=== PATIENT | male | born 1990 | race Caucasian/White ===

== ENCOUNTER 2024-03-17 20:52 | Emergency (ER) | payer OTHER, SELFPAY ==
--- NOTE | ~2024-03-17 | XR_ITS ---
EXAMINATION: XR hand RT min 3V DATE: 03/17/2024 21:30 INDICATION: Right hand injury TECHNIQUE: Posteroanterior, oblique and lateral views of the right hand were obtained. COMPARISON: None. FINDINGS: Alignment is normal. No fracture. Joint spaces are normal. Soft tissues are unremarkable. IMPRESSION: 1. Negative right hand radiographs. Reviewed, dictated and finalized at location A.
[2024-03-17 21:22] VITALS: BP 219/92; PULSE 94; RESP 16; TEMP 36.8; O2SAT 99
[2024-03-17 22:42] VITALS: BP 196/96; PULSE 67; RESP 15; O2SAT 99
--- NOTE | 2024-03-17 23:25 | ED.UPPEXIN ---
HPI - Extremity Injury (Upper) General Chief Complaint: Extremity Injury, Upper Stated Complaint: CRUSH INJURY TO RIGHT HAND Time Seen by Provider: 03/17/24 22:33 Source: patient Mode of arrival: ambulatory Limitations: no limitations History of Present Illness HPI narrative: This is a 33-year-old male that presents to the emergency department for right hand injury. Reports he accidentally got his hand caught between a log and his truck bed. Reports pain about the 4th and 5th metacarpals. Denies decreased range of motion or numbness. Related Data Allergies Allergy/AdvReac Type Severity Reaction Status Date / Time No Known Allergies Allergy Verified 03/17/24 23:26 Review of Systems Review of Systems: CONSTITUTIONAL: Denies fever MUSCULOSKELETAL: Reports joint pain, and myalgia. NEUROLOGIC: Denies numbness, or weakness. All systems reviewed & are unremarkable except as noted in HPI and below PMFSH Past Medical History Medical History (Updated 03/17/24 @ 23:31 by Spring Crockett PA-C) History of hypertension Social History Social History (Updated 03/17/24 @ 23:31 by Spring Crockett PA-C) Substance use: never Exam Narrative: GENERAL: Well-appearing, well-nourished, and in no acute distress. HEAD: Normocephalic, atraumatic. EYES: EOMI. EXTREMITIES: Normal range of motion. No edema or obvious deformity. Normal radial pulse. Normal sensation. Normal capillary refill SKIN: Warm, dry, no rash. NEURO: No focal deficits. Alert and oriented x3. PSYCH: Normal mood and affect Course Course Emergency Course: Patient updated on his workup and agrees with plan of care Vital Signs Vital signs: Vital Signs Temperature 98.3 F 03/17/24 21:22 Pulse Rate 94 03/17/24 21:22 Respiratory Rate 16 03/17/24 21:22 Blood Pressure 219/92 H 03/17/24 21:22 Pulse Oximetry 99 03/17/24 21:22 Oxygen Delivery Room Air 03/17/24 21:22 Temperature 98.3 F 03/17/24 21:22 Pulse Rate 67 03/17/24 22:42 Respiratory Rate 15 03/17/24 22:42 Blood Pressure 196/96 H 03/17/24 22:42 Pulse Oximetry 99 03/17/24 22:42 Oxygen Delivery Room Air 03/17/24 21:22 MDM - Extremity Injury (Upper) MDM Narrative Medical decision making narrative: Patient presents to the emergency department after a right hand injury sustained just prior to arrival. Patient is neurovascularly intact. Right hand x-rays without acute osseous abnormalities. Patient updated on his workup and agrees with plan of care. Instructed to rest, ice and take [id number] pain medication as needed. He is to follow up with primary provider. He was given warnings to return to the ER. Patient incidentally hypertensive. He does not have any symptoms with this. Reports he did not take his blood pressure medication today. Instructed on the importance of taking his medications as prescribed. Will follow up with his primary provider for this as well Differential Diagnosis Differential diagnosis: Likely fracture of hand and other (Contusion) Imaging Data Radiologist's impression: ITS Impressions Hand X-Ray 03/17/24 21:38 IMPRESSION: 1. Negative right hand radiographs. Critical Care Time Critical Care Time Critical Care Time: No Discharge Plan Discharge Clinical Impression: Injury of hand, right Qualifiers: Encounter type: initial encounter Qualified Code(s): S69.91XA - Unspecified injury of right wrist, hand and finger(s), initial encounter Patient Disposition: Home, Self-Care Condition: Stable Instructions: Contusion in Adults (ED), Crush Injury (ED) Additional Instructions: Return to the ER if you experience fever, redness and swelling of your arm, weakness, numbness, your arm feels cold, or any other symptoms that are concerning to you Rest, use ice, take anti-inflammatories (Aleve, Ibuprofen, Naproxen, etc) or Tylenol as needed for pain. Take your blood pressure medication as prescribed
[2024-03-17] MEDS: KETOROLAC 30 MG/ML VIAL (*BKC) IM (23:26)
[2024-03-17 23:45] VITALS: BP 184/92; PULSE 77; RESP 16; O2SAT 98
== END 2024-03-17 23:46 | disposition home or self-care (01) ==
PROVIDERS: Emergency Provider Physician Assistant
DX: S69.91XA Unspecified injury of right wrist, hand and finger(s), initial encounter (principal); I10 Essential (primary) hypertension; W23.0XXA Caught, crushed, jammed, or pinched between moving objects, initial encounter
CPT/HCPCS: 73130; 96372; 99283; J1885

== ENCOUNTER 2024-04-09 20:23 | Emergency (ER) | payer OTHER, SELFPAY ==
[2024-04-10 00:10] VITALS: BP 199/102; PULSE 80; RESP 19; TEMP 36.9; O2SAT 98
[2024-04-10 00:12] VITALS: O2SAT 98
== END 2024-04-10 00:51 | disposition left against medical advice (07) ==
DX: R21 Rash and other nonspecific skin eruption (principal)
CPT/HCPCS: 99199

== ENCOUNTER 2024-07-31 21:08 | Emergency (ER) | payer OTHER, SELFPAY ==
--- NOTE | ~2024-07-31 | XR_ITS ---
EXAM: XR knee RT 3V DATE: 07/31/2024 21:37 HISTORY: pain/ RIGHT KNEE PAIN FOR 2 MONTHS. . COMPARISON: None available. FINDINGS: Normal mineralization. No fracture or dislocation. No lytic or blastic lesion. Very mild t ricompartmental osteoarthritic change. No erosion or periosteal change. Soft tissues within normal li mits. Small volume joint effusion. IMPRESSION: No acute osseous finding in the right knee. Reviewed, dictated and finalized at location K.
[2024-07-31 21:17] VITALS: BP 208/102; PULSE 90; RESP 20; TEMP 36.7; O2SAT 100
[2024-07-31 21:50] VITALS: BP 202/119; PULSE 80; RESP 16; O2SAT 98
--- NOTE | 2024-07-31 21:50 | PC.NURSE ---
pt states they have been diagnosed with HTN and is prescribed medication but did not take it at all today. pt usually takes it in the morning and was lazy and frequently forgets to take medication.
[2024-07-31] MEDS: LOSARTAN POTASSIUM 100 MG TABLET PO (22:52)
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
== END 2024-08-01 00:48 | disposition left against medical advice (07) ==
LOC: ANHED 08-01 01:39
PROVIDERS: Emergency Provider Physician Assistant
DX: M25.561 Pain in right knee (principal)
CPT/HCPCS: 73562; 99199; A9270

== ENCOUNTER 2024-08-08 15:43 | Emergency (ER) | payer OTHER, SELFPAY ==
--- NOTE | ~2024-08-08 | XR_ITS ---
EXAMINATION: XR chest 1V portable DATE: 08/08/2024 16:09 INDICATION: Chest pain and hypertension TECHNIQUE: frontal view of the chest was obtained. COMPARISON: None FINDINGS: The lungs are clear with no focal airspace opacities, pulmonary edema, pleural effusion or pneumothor ax. The cardiomediastinal silhouette is normal. Visualized bones and soft tissues are unremarkable. IMPRESSION: 1. No acute cardiopulmonary disease. Reviewed, dictated and finalized at location A.
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
[2024-08-08 15:44] VITALS: BP 197/106; PULSE 87; RESP 20; TEMP 36.6; O2SAT 98
[2024-08-08 15:50] VITALS: BP 197/106; PULSE 88; RESP 18; O2SAT 97
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
[2024-08-08 16:31] VITALS: BP 177/91; PULSE 82; RESP 16
[2024-08-08 16:35] LABS: Basophils Absolute Auto 0.1 K/mm3 (0.0-0.1); Basophils Percent Auto 0.7 % (0.2-1.2); Eosinophils Absolute Auto 0.3 K/mm3 (0-0.3); Eosinophils Percent Auto 2.6 % (0-4.4); Hematocrit 46.7 % (42.0-52.0); Hemoglobin 15.4 g/dL (14.0-18.0); Immature Granulocyte Absolute 0.04 K/mm3 (0.00-0.031); Immature Granulocyte Percent A 0.4 % (0-0.5); Lymphocytes Absolute Auto 2.13 K/mm3 (0.9-3.2); Lymphocytes Percent Auto 19.1 % (18.3-44.2); Mean Corpuscular Hemoglobin 27.6 pg (26-34); Mean Corpuscular Volume 83.8 fl (80-100); Mean Platelet Volume 9.4 fl (7.4-10.4); Monocytes Absolute Auto 0.7 K/mm3 (0.1-0.6); Monocytes Percent Auto 6.6 % (2.6-8.5); Neutrophils Absolute Auto 7.9 K/mm3 (1.3-6.7); Neutrophils Percent Auto 70.6 % (45.5-73.1); Platelet Count Result 313 k/mm3 (150-375); Red Blood Count 5.57 M/mm3 (4.6-6.20); Red Cell Distribution Width 13.4 % (11.5-14.5); White Blood Count 11.2 K/mm3 (4.5-10.0)
[2024-08-08 16:41] LABS: Alanine Aminotransferase 34 U/L (6-50); Albumin Level 4.2 g/dL (3.5-5.1); Alkaline Phosphatase 70 U/L (38-126); Anion Gap 9 mmol/L (4-12); Aspartate Amino Transferase 26 U/L (17-59); Bilirubin,Total 0.6 mg/dL (0.2-1.3); Blood Urea Nitrogen 11 mg/dL (9-20); Calcium 8.7 mg/dL (8.4-10.2); Carbon Dioxide 27 mmol/L (22-30); Chloride 102 mmol/L (98-107); Estimated CRCL calculation 156 ml/min; Estimated Glomerular Filt Rate > 60; Glucose 98 mg/dL (65-110); Potassium 3.2 mmol/L (3.4-5.0); Sodium 138 mmol/L (137-145)
== END 2024-08-08 17:38 | disposition home or self-care (01) ==
PROVIDERS: Emergency Provider Emergency Medicine
DX: R07.9 Chest pain, unspecified (principal); I10 Essential (primary) hypertension
CPT/HCPCS: 36415; 71045; 71260; 74177; 80053; 85025; 99284; Q9967

== ENCOUNTER 2024-10-09 05:06 | Emergency (ER) | payer OTHER, SELFPAY ==
--- NOTE | ~2024-10-09 | US_ITS ---
Limited Abdominal Sonogram: Real-time sonographic imaging of the right upper quadrant was performed. Clinical History: Gallstones Findings: The liver appears normal with no evidence of mass lesion or bile duct dilatation. Main por archana vein demonstrates normal direction of flow. The gallbladder is well distended, and contains echog enic gallstones. No gallbladder wall thickening. The common bile duct measures 4 mm. The visualized pancreas, aorta, and IVC are unremarkable. Impression: Cholelithiasis. Reviewed, dictated and finalized at location M. R TRAINER Impression: Cholelithiasis.
--- NOTE | ~2024-10-09 | CT_ITS ---
Clinical Indication: Dissection CT Scan of the Chest, Abdomen, and Pelvis with Contrast: Technique: Contiguous sections were acquired throughout the chest, abdomen, and pelvis after intraven ous administration of 100 cc of Omnipaque 350. Dose reduction technique was used on this scan by compa roberson automated exposure control and iterative reconstruction technique. The dose-length product (DL P) was 2352.01 mGy-cm. Comparison: 08/08/2024 Findings: There is no evidence of any significant mediastinal, hilar or axillary lymphadenopathy. The mediastin al soft tissues appear normal. No aortic aneurysm or dissection seen. No pulmonary embolus identified . There is no evidence of pleural or pericardial effusion. The lungs are clear. No pulmonary nodules or infiltrates are noted. The liver, spleen, pancreas, adrenals and kidneys are within normal limits. Gallstones are present. N o evidence of aortic aneurysm or dissection. No lymphadenopathy. No bowel obstruction or bowel wall thickening. There is no evidence to suggest acute appendicitis. Urinary bladder is unremarkable. No pelvic mass seen. No ascites. Impression: No acute abnormality. No aortic aneurysm or dissection. Cholelithiasis. Reviewed, dictated and finalized at location . D CARE TEACHER Impression: No acute abnormality. No aortic aneurysm or dissection. Cholelithiasis.
[2024-10-09 05:08] VITALS: BP 241/135; PULSE 82; RESP 20; TEMP 36.3; O2SAT 100
--- NOTE | 2024-10-09 05:15 | ECG_ITS ---
Test Date: 2024-10-09 05:43:32 Measurements Intervals [place] Rate: 75 P: 39 ID: [id number] QRS: -3 QRSD: 109 T: 74 QT: 398 QTc: 446 Interpretive Statements SINUS RHYTHM POSSIBLE LEFT ATRIAL ENLARGEMENT [-0.1mV P WAVE IN V1/V2] POSSIBLE LEFT VENTRICULAR HYPERTROPHY [VOLTAGE CRITERIA PLUS LAE OR QRS WIDENING] NONSPECIFIC ST & T-WAVE ABNORMALITY No previous ECG available for comparison Electronically Signed On 10-09-2024 08:49:11 [employer] by Ciro Card M.D.
[2024-10-09] MEDS: hydrALAZINE HCL 20 MG/ML VIAL 10 MG IV PUSH (05:32)
[2024-10-09] MEDS: LACTATED RINGERS 1,000 ML 999 ML IV CONT (05:33)
[2024-10-09] MEDS: ONDANSETRON INJ 4 MG/2 ML VIAL IV PUSH (05:35)
[2024-10-09] MEDS: HYDROmorphone HCL INJ (*CRX) 1 MG/ML SYR IV PUSH ×2 (05:36→07:24)
[2024-10-09 05:45] VITALS: BP 235/119; PULSE 73; RESP 24; TEMP 36.6; O2SAT 98
[2024-10-09 05:45] LABS: Basophils Absolute Auto 0.1 K/mm3 (0.0-0.1); Basophils Percent Auto 0.7 % (0.2-1.2); Eosinophils Absolute Auto 0.3 K/mm3 (0-0.3); Eosinophils Percent Auto 3.5 % (0-4.4); Hemoglobin 15.1 g/dL (14.0-18.0); Immature Granulocyte Absolute 0.04 K/mm3 (0.00-0.031); Immature Granulocyte Percent A 0.4 % (0-0.5); Lymphocytes Absolute Auto 3.09 K/mm3 (0.9-3.2); Lymphocytes Percent Auto 32.9 % (18.3-44.2); Mean Corpuscular HGB Conc 32.8 g/dl (32-36); Mean Corpuscular Hemoglobin 27.1 pg (26-34); Mean Corpuscular Volume 82.6 fl (80-100); Mean Platelet Volume 9.3 fl (7.4-10.4); Monocytes Absolute Auto 0.7 K/mm3 (0.1-0.6); Monocytes Percent Auto 7.9 % (2.6-8.5); Neutrophils Absolute Auto 5.1 K/mm3 (1.3-6.7); Neutrophils Percent Auto 54.6 % (45.5-73.1); Platelet Count Result 253 k/mm3 (150-375); Red Blood Count 5.57 M/mm3 (4.6-6.20); Red Cell Distribution Width 13.7 % (11.5-14.5); White Blood Count 9.4 K/mm3 (4.5-10.0)
--- NOTE | 2024-10-09 05:51 | ED.ABDPAIN ---
HPI - Abdominal Pain General Chief Complaint: Abdominal Pain <Eder Casanova MD - Last Filed: 10/09/24 08:07> Stated Complaint: RUQ abd pain <Eder Casanova MD - Last Filed: 10/09/24 08:07> Time Seen by Provider: 10/09/24 05:14 <Eder Casanova MD - Last Filed: 10/09/24 08:07> History of Present Illness HPI narrative: 34-year-old male with a past medical history significant for cholelithiasis and severe hypertension. Today patient presents to the emergency department after having a woken up from sleep with severe epigastric pain radiating towards his right upper quadrant, left upper quadrant and towards his back and chest. He states that he has had significant gallbladder issues before and his plan to get an operation for but he moved and has not established with a PCP since. He states that the pain is somewhat similar to his gallbladder attacks although it does not usually cause nauseousness or radiated to his chest which is unusual. He states he has been taking his blood pressure medications and normally runs in the 200 systolic despite this. Again has not followed up with PCP for changing his regimen. Denies any difficulty breathing, headache, vision changes, weakness, neuropathy, paresthesias. No aortic pathology history to his knowledge, no recent travel or illnesses. No history of DVT or PE or risk factors for such. <Eder Casanova MD - Last Filed: 10/09/24 08:07> Related Data Allergies/Adverse Reactions: Allergies Allergy/AdvReac Type Severity Reaction Status Date / Time poison anat extract Allergy Rash Verified 10/09/24 05:06 poison oak extract Allergy Rash Verified 10/09/24 05:06 poison sumac extract Allergy Rash Verified 10/09/24 05:06 <Eder Casanova MD - Last Filed: 10/09/24 08:07> Review of Systems Review of Systems: As reviewed above in HPI <Eder Casanova MD - Last Filed: 10/09/24 08:07> PMFSH Past Medical History Medical History: Medical History History of hypertension <Eder Casanova MD - Last Filed: 10/09/24 08:07> Social History Social History: Social History Substance use: never <Eder Casanova MD - Last Filed: 10/09/24 08:07> Exam Narrative: GENERAL: Uncomfortable appearing but answering all questions appropriately, he is awake alert oriented. HEAD: [Normocephalic, atraumatic.] EYES: [PERRLA and EOMI.] ENT: Nares clear, no rhinorrhea or epistaxis. Mucous membranes moist. NECK: Supple. CHEST: [Clear to auscultation. No respiratory distress.] HEART: [Regular rate and rhythm]. No murmur heard. [Normal peripheral pulses.] ABDOMEN: [Soft, nondistended], minimally tender palpation in the epigastrium with no CVA tenderness or peritonitis, [No rigidity or guarding] EXTREMITIES: Normal range of motion. [No edema.] SKIN: Warm, dry, no rash. NEURO: [No focal deficits]. Alert and oriented [x3.] PSYCH: [Normal mood and affect.] <Eder Casanova MD - Last Filed: 10/09/24 08:07> Course Vital Signs Vital signs: Vital Signs Temperature 36.3 C L 10/09/24 05:08 Pulse Rate 82 10/09/24 05:08 Respiratory Rate 20 10/09/24 05:08 Blood Pressure 241/135 H 10/09/24 05:08 Pulse Oximetry 100 10/09/24 05:08 Oxygen Delivery Room Air 10/09/24 05:08 Temperature 36.6 C 10/09/24 05:45 Pulse Rate 73 10/09/24 09:06 Respiratory Rate 20 10/09/24 09:06 Blood Pressure 155/86 H 10/09/24 09:06 Pulse Oximetry 99 10/09/24 09:06 Oxygen Delivery Room Air 10/09/24 05:08 <Eder Casanova MD - Last Filed: 10/09/24 08:07> Vital Signs Temperature 36.3 C L 10/09/24 05:08 Pulse Rate 82 10/09/24 05:08 Respiratory Rate 20 10/09/24 05:08 Blood Pressure 241/135 H 10/09/24 05:08 Pulse Oximetry 100 10/09/24 05:08 Oxygen Delivery Room Air 10/09/24 05:08 Temperature 36.6 C 10/09/24 05:45 Pulse Rate 73 10/09/24 09:06 Respiratory Rate 20 10/09/24 09:06 Blood Pressure 155/86 H 10/09/24 09:06 Pulse Oximetry 99 10/09/24 09:06 Oxygen Delivery Room Air 10/09/24 05:08 <Anthony Bazan MD - Last Filed: 10/09/24 09:29> MDM - Abdominal Pain MDM Narrative Medical decision making narrative: 34-year-old male presenting with sudden-onset epigastric and chest and back pain that woke him up from sleep. States he has a history of gallbladder disease but has not gone his cholecystectomy at. He also has a history of refractory uncontrolled hypertension but does not seek new medications from his PCP as he just moved to a new area. He is hypertensive in the 240 range but no tachycardia. Well-perfused symmetric pulses but bounding pulses. Minimal tenderness to palpation in epigastrium he does appear uncomfortable. Overall patient states this feels somewhat similar to his gallbladder attacks but also has different quality to it as he normally does not get nauseousness or have any pain in his chest or back. Given the severe range hypertension as well as the epigastric back and chest pain my considerations at this time include cholelithiasis, gallbladder attack, aortic pathology such as dissection or aneurysm, less likely ACS or pneumonia, pneumothorax. Less likely other intra-abdominal process but we will evaluate thoroughly with CBC, CMP, lipase, chest x-ray, EKG, troponin, CT angiography of the chest abdomen pelvis. Patient was given Dilaudid and Zofran as well as a fluid bolus for symptom control. He was given hydralazine for his severe range hypertension. Patient was re-evaluated had improvement in his pain from 10/10 down to 8/10 with Dilaudid. He was given a dose of fentanyl. His CT angiography shows no aortic dissections or aneurysms. He does have some cholelithiasis but no cholecystitis or a thickened gallbladder wall. His workup here is rather unremarkable including no white count, no LFT elevations, negative troponin, no acute pathology on his CT chest abdomen or pelvis otherwise. Given patient's persistent right upper quadrant epigastric pain he was given a dose of fentanyl and right upper quadrant ultrasound was ordered. He was signed out to the oncoming emergency physician at [id number] pending results, re-evaluation and can likely be discharged home with General surgery follow-up unless acute findings. I discussed this plan of care with the patient and he was agreeable. <Eder Casanova MD - Last Filed: 10/09/24 08:07> 34-year-old male presenting with sudden-onset epigastric and chest and back pain that woke him up from sleep. States he has a history of gallbladder disease but has not gone his cholecystectomy at. He also has a history of refractory uncontrolled hypertension but does not seek new medications from his PCP as he just moved to a new area. He is hypertensive in the 240 range but no tachycardia. Well-perfused symmetric pulses but bounding pulses. Minimal tenderness to palpation in epigastrium he does appear uncomfortable. Overall patient states this feels somewhat similar to his gallbladder attacks but also has different quality to it as he normally does not get nauseousness or have any pain in his chest or back. Given the severe range hypertension as well as the epigastric back and chest pain my considerations at this time include cholelithiasis, gallbladder attack, aortic pathology such as dissection or aneurysm, less likely ACS or pneumonia, pneumothorax. Less likely other intra-abdominal process but we will evaluate thoroughly with CBC, CMP, lipase, chest x-ray, EKG, troponin, CT angiography of the chest abdomen pelvis. Patient was given Dilaudid and Zofran as well as a fluid bolus for symptom control. He was given hydralazine for his severe range hypertension. Patient was re-evaluated had improvement in his pain from 10/10 down to 8/10 with Dilaudid. He was given a dose of fentanyl. His CT angiography shows no aortic dissections or aneurysms. He does have some cholelithiasis but no cholecystitis or a thickened gallbladder wall. His workup here is rather unremarkable including no white count, no LFT elevations, negative troponin, no acute pathology on his CT chest abdomen or pelvis otherwise. Given patient's persistent right upper quadrant epigastric pain he was given a dose of fentanyl and right upper quadrant ultrasound was ordered. He was signed out to the oncoming emergency physician at [id number] pending results, re-evaluation and can likely be discharged home with General surgery follow-up unless acute findings. I discussed this plan of care with the patient and he was agreeable. ultrasound showed cholelithiasis without evidence of cholecystitis. Patient will be started on oral pain medications and will be instructed to do a clear liquid diet the patient will be referred to General surgery <Anthony Bazan MD - Last Filed: 10/09/24 09:29> Medical Records Attestation: I reviewed the patient's medical records. <Eder Casanova MD - Last Filed: 10/09/24 08:07> Lab Data Attestation: I reviewed the patient's lab results. <Eder Casanova MD - Last Filed: 10/09/24 08:07> Result diagrams: 10/09/24 05:38 10/09/24 05:38 <Eder Casanova MD - Last Filed: 10/09/24 08:07> Labs: Lab Results 10/09/24 10/09/24 10/09/24 Range/Units 05:38 05:42 07:31 WBC 9.4 (4.5-10.0) K/mm3 RBC 5.57 (4.6-6.20) M/mm3 Hgb 15.1 (14.0-18.0) g/dL Hct 46.0 (42.0-52.0) % MCV 82.6 (80-100) fl MCH 27.1 (26-34) pg MCHC 32.8 (32-36) g/dl RDW 13.7 (11.5-14.5) % Plt Count 253 (150-375) k/mm3 MPV 9.3 (7.4-10.4) fl Immature Gran % (Auto) 0.4 (0-0.5) % Neut % (Auto) 54.6 (45.5-73.1) % Lymph % (Auto) 32.9 (18.3-44.2) % [place] % (Auto) 7.9 (2.6-8.5) % Eos % (Auto) 3.5 (0-4.4) % Baso % (Auto) 0.7 (0.2-1.2) % Lymph # (Auto) 3.09 (0.9-3.2) K/mm3 [place] # (Auto) 0.7 H (0.1-0.6) K/mm3 Eos # (Auto) 0.3 (0-0.3) K/mm3 Baso # (Auto) 0.1 (0.0-0.1) K/mm3 Abs Immat Gran (auto) 0.04 H (0.00-0.031) K/mm3 Absolute Neuts (auto) 5.1 (1.3-6.7) K/mm3 Absolute Nucleated RBC 0.000 (0.0-0.012) K/mm3 Nucleated RBC % 0.0 (0.0-0.2) % PT 12.9 (11.1-14.7) Seconds INR 0.9 APTT 24.1 (22.3-36.8) Seconds Sodium 137 (137-145) mmol/L Potassium 3.3 L (3.4-5.0) mmol/L Chloride 108 H (98-107) mmol/L Carbon Dioxide 25 (22-30) mmol/L Anion Gap 4 (4-12) mmol/L BUN 17 (9-20) mg/dL Creatinine 1.00 (0.7-1.3) mg/dL Estim Creat Clear Calc 129 ml/min Estimated GFR > 60 (59 - ) Glucose 110 (65-110) mg/dL Lactic Acid 1.2 (0.7-2.0) mmol/L Calcium 9.1 (8.4-10.2) mg/dL Total Bilirubin 0.5 (0.2-1.3) mg/dL AST 20 (17-59) U/L ALT 21 (6-50) U/L Alkaline Phosphatase 70 (38-126) U/L Troponin I < 0.012 (0.000-0.034) ng/mL Total Protein 7.0 (6.3-8.2) g/dL Albumin 4.2 (3.5-5.1) g/dL Lipase 162 (23-300) U/L Urine Color Yellow (Yellow) Urine Appearance Clear (Clear) Urine pH 7.0 (5.0-9.0) Ur Specific Ozone > 1.045 H (1.001-1.035) Urine Protein Negative (Negative) mg/dL Urine Glucose (UA) Negative (Negative) mg/dL Urine Ketones Negative (Negative) mg/dL Ur Blood (Man) Non-hemolyzed trace (Negative) Urine Nitrate Negative (Negative) Urine Bilirubin Negative (Negative) Urine Urobilinogen 1.0 (<2.0) mg/dL Leukocyte Esterase Rfl Negative (Negative) KAROL/UL Urine RBC 6-10 H (0-2) /hpf Urine WBC 0-5 (0-3) /hpf Ur Squamous Epith Cells None seen (Few) /hpf Urine Bacteria None seen /hpf Urine Casts 0-2 <Eder Casanova MD - Last Filed: 10/09/24 08:07> Lab Results 10/09/24 10/09/24 10/09/24 Range/Units 05:38 05:42 07:31 WBC 9.4 (4.5-10.0) K/mm3 RBC 5.57 (4.6-6.20) M/mm3 Hgb 15.1 (14.0-18.0) g/dL Hct 46.0 (42.0-52.0) % MCV 82.6 (80-100) fl MCH 27.1 (26-34) pg MCHC 32.8 (32-36) g/dl RDW 13.7 (11.5-14.5) % Plt Count 253 (150-375) k/mm3 MPV 9.3 (7.4-10.4) fl Immature Gran % (Auto) 0.4 (0-0.5) % Neut % (Auto) 54.6 (45.5-73.1) % Lymph % (Auto) 32.9 (18.3-44.2) % [place] % (Auto) 7.9 (2.6-8.5) % Eos % (Auto) 3.5 (0-4.4) % Baso % (Auto) 0.7 (0.2-1.2) % Lymph # (Auto) 3.09 (0.9-3.2) K/mm3 [place] # (Auto) 0.7 H (0.1-0.6) K/mm3 Eos # (Auto) 0.3 (0-0.3) K/mm3 Baso # (Auto) 0.1 (0.0-0.1) K/mm3 Abs Immat Gran (auto) 0.04 H (0.00-0.031) K/mm3 Absolute Neuts (auto) 5.1 (1.3-6.7) K/mm3 Absolute Nucleated RBC 0.000 (0.0-0.012) K/mm3 Nucleated RBC % 0.0 (0.0-0.2) % PT 12.9 (11.1-14.7) Seconds INR 0.9 APTT 24.1 (22.3-36.8) Seconds Sodium 137 (137-145) mmol/L Potassium 3.3 L (3.4-5.0) mmol/L Chloride 108 H (98-107) mmol/L Carbon Dioxide 25 (22-30) mmol/L Anion Gap 4 (4-12) mmol/L BUN 17 (9-20) mg/dL Creatinine 1.00 (0.7-1.3) mg/dL Estim Creat Clear Calc 129 ml/min Estimated GFR > 60 (59 - ) Glucose 110 (65-110) mg/dL Lactic Acid 1.2 (0.7-2.0) mmol/L Calcium 9.1 (8.4-10.2) mg/dL Total Bilirubin 0.5 (0.2-1.3) mg/dL AST 20 (17-59) U/L ALT 21 (6-50) U/L Alkaline Phosphatase 70 (38-126) U/L Troponin I < 0.012 (0.000-0.034) ng/mL Total Protein 7.0 (6.3-8.2) g/dL Albumin 4.2 (3.5-5.1) g/dL Lipase 162 (23-300) U/L Urine Color Yellow (Yellow) Urine Appearance Clear (Clear) Urine pH 7.0 (5.0-9.0) Ur Specific Ozone > 1.045 H (1.001-1.035) Urine Protein Negative (Negative) mg/dL Urine Glucose (UA) Negative (Negative) mg/dL Urine Ketones Negative (Negative) mg/dL Ur Blood (Man) Non-hemolyzed trace (Negative) Urine Nitrate Negative (Negative) Urine Bilirubin Negative (Negative) Urine Urobilinogen 1.0 (<2.0) mg/dL Leukocyte Esterase Rfl Negative (Negative) KAROL/UL Urine RBC 6-10 H (0-2) /hpf Urine WBC 0-5 (0-3) /hpf Ur Squamous Epith Cells None seen (Few) /hpf Urine Bacteria None seen /hpf Urine Casts 0-2 <Anthony Bazan MD - Last Filed: 10/09/24 09:29> Imaging Data Radiologist's impression: ITS Impressions Chest/Abdomen/Pelvis CTA 10/09/24 06:45 Impression: No acute abnormality. No aortic aneurysm or dissection. Cholelithiasis. Abdomen Ultrasound 10/09/24 08:28 Impression: Cholelithiasis. <Eder Casanova MD - Last Filed: 10/09/24 08:07> ITS Impressions Chest/Abdomen/Pelvis CTA 10/09/24 06:45 Impression: No acute abnormality. No aortic aneurysm or dissection. Cholelithiasis. Abdomen Ultrasound 10/09/24 08:28 Impression: Cholelithiasis. <Anthony Bazan MD - Last Filed: 10/09/24 09:29> Discharge Plan Discharge Clinical Impression: Gallbladder attack, History of uncontrolled hypertension, Cholelithiasis <Eder Casanova MD - Last Filed: 10/09/24 08:07> Patient Disposition: Home, Self-Care <Eder Casanova MD - Last Filed: 10/09/24 08:07> Condition: Stable <Eder Casanova MD - Last Filed: 10/09/24 08:07> Instructions: Antibiotic Form, Biliary Colic (ED), Gallstones (ED), Abdominal Pain (ED) <Eder Casanova MD - Last Filed: 10/09/24 08:07> Patient Language: Armenian <Eder Casanova MD - Last Filed: 10/09/24 08:07> Prescriptions: New hydrocodone-acetaminophen 5-325 mg tablet 1 tablet PO Q6H PRN (Reason: pain) 3 Days Qty: 12 0RF <Eder Casanova MD - Last Filed: 10/09/24 08:07> Follow-up/Referrals: Rito Maldonado MD [Other] UNKNOWN,DOCTOR [Primary Care Provider] - <Eder Casanova MD - Last Filed: 10/09/24 08:07> Time of Disposition: 09:29 <Eder Casanova MD - Last Filed: 10/09/24 08:07> 09:29 <Anthony Bazan MD - Last Filed: 10/09/24 09:29>
[2024-10-09 05:58] LABS: Alanine Aminotransferase 21 U/L (6-50); Albumin Level 4.2 g/dL (3.5-5.1); Alkaline Phosphatase 70 U/L (38-126); Anion Gap 4 mmol/L (4-12); Aspartate Amino Transferase 20 U/L (17-59); Bilirubin,Total 0.5 mg/dL (0.2-1.3); Blood Urea Nitrogen 17 mg/dL (9-20); Calcium 9.1 mg/dL (8.4-10.2); Carbon Dioxide 25 mmol/L (22-30); Chloride 108 mmol/L (98-107); Estimated CRCL calculation 129 ml/min; Estimated Glomerular Filt Rate > 60; Glucose 110 mg/dL (65-110); Lipase 162 U/L (23-300); Potassium 3.3 mmol/L (3.4-5.0); Sodium 137 mmol/L (137-145)
[2024-10-09 06:00] LABS: INR 0.9; Partial Thromboplastin Time 24.1 Seconds (22.3-36.8); Prothrombin Time 12.9 Seconds (11.1-14.7)
[2024-10-09 06:01] LABS: Lactic Acid Reflex 1.2 mmol/L (0.7-2.0)
[2024-10-09 06:12] LABS: Troponin I < 0.012 ng/mL (0.000-0.034)
[2024-10-09 07:25] VITALS: BP 206/95; PULSE 72; RESP 16; O2SAT 98
[2024-10-09] MEDS: LABETALOL HCL INJ 100 MG/20 ML VIAL 20 MG IV PUSH (07:27)
[2024-10-09 07:33] VITALS: BP 159/88; PULSE 71; RESP 20; O2SAT 96
[2024-10-09 07:44] LABS: Add Urine Microscopic? NO; Appearance Urine Clear (Clear); Bacteria Urine None Seen /hpf; Bilirubin Urine Negative (Negative); Blood Urine Non-Hemolyzed Trace (Negative); Color Urine Yellow (Yellow); Glucose Urine UA Negative (Negative); Ketones Urine Negative (Negative); Leukocyte Esterase Ur Negative LEU/UL (Negative); Nitrate Urine Negative (Negative); Non Pathogenic Casts 0-2; Protein Urine Negative (Negative); Specific Grav Ur > 1.045 (1.001-1.035); Squamous Epithelial Cell Urine None Seen /hpf (Few); WBC Urine 0-5 /hpf (0-3)
[2024-10-09 08:23] VITALS: BP 160/90; PULSE 67; RESP 18; O2SAT 98
[2024-10-09] MEDS: fentaNYL CITRATE INJ (*CRX) 100 MCG/2 ML VIAL IV PUSH (08:35)
[2024-10-09] MEDS: KETOROLAC 30 MG/ML VIAL (*BKC) IV PUSH (09:04)
[2024-10-09 09:06] VITALS: BP 155/86; PULSE 73; RESP 20; O2SAT 99
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
--- OUTSIDE RECORDS SUMMARY | 2024-10-13 15:22 | XMS_ITS | Encounter Summary ---
Author Organization [facility] Healthcare Address [address] [place] [id number] Care Team Providers Care Tractor Technician Name Role Phone Unavailable Primary Care Provider Unavailabl e Reason for Visit * Reason Comments Knee Pain Encounter Details Date Type Department Care Team (Late st Contact Info) Description 08/01/2024 12:24 PM CDT - 08/01/2024 3:02 PM CDT Emergency [facility] Emergency Department [address] [place] [id number] Discharge Disposition: Left without being seen Social History Tobacco Use Types Packs/Day Years Used Date Smoking Tobacco: Never Assessed Personal Safety Answer Date Recorded Have you ever been in or are you currently in a harmful physical or emotional relationship or is someone making you feel afraid or unsafe? 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 Gender Identity Not on file Sexual Orientation Not on file documented as of this encounter Last Filed Vital Signs Vital Sign Reading Time Taken Comments Blood Pressure 200/111 08/01/2024 12:38 PM CDT Pulse 86 08/01/2024 12:38 PM CDT Temperature 37.1 ??C (98.8 ??F) 08/01/2024 12:38 PM C DT Respiratory Rate 18 08/01/2024 12:38 PM CDT Oxygen Saturation 100% 08/01/2024 12:38 PM CDT Inhaled Oxygen Concentration - - Weight 127 kg (280 lb) 08/01/2024 12:38 PM CDT Height - - Body Mass Index - - documented in this encounter Discharge Disposition Disposition Code Departure Means Destination Left without being seen documented in this encounter ED Notes * Jessica Meyer, RN - 08/01/2024 12:36 PM CDT Pt arrives to ED via POV for right knee pain x 1 month. Pt states it has worsened and it popped yesterday. Pt presents with swelling and redness to right knee. Pt denies injury. documented in this encounter Plan of Treatment Not on file documented as of this encounter Visit Diagnoses Not on filedocumented in this encounter
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
--- OUTSIDE RECORDS SUMMARY | 2024-10-13 15:22 | XMS_ITS | CONTINUITY OF CARE DOCUMENT ---
Author Name mere severino Address Unknown Organization [facility] Address [address] [place] [address] Phone [phone] Care Team Providers Care Guest Experience Representative Name Role Phone Armando Smith MD Unavailable [phone] Armando Smith MD Unavailable [phone] INSURANCE PROVIDERS Payer name Policy type / Coverage type [place] red green party [place] [employer] Medicaid [id number]
--- OUTSIDE RECORDS SUMMARY | 2024-10-13 15:23 | XMS_ITS | CONTINUITY OF CARE DOCUMENT ---
Author Name mere severino Address Unknown Organization [facility] Address [address] [place] [address] Phone [phone] Care Team Providers Care Barrel Liner Name Role Phone Armando Smith MD Unavailable [phone] Armando Smith MD Unavailable INSURANCE PROVIDERS Payer name Policy type / Coverage type [place] red democrat ID [place] MED[employer] Medicaid [id number]
== END 2024-10-09 09:34 | disposition home or self-care (01) ==
PROVIDERS: Emergency Provider Student in an Organized Health Care Education/Training Program
DX: K80.20 Calculus of gallbladder without cholecystitis without obstruction (principal); I10 Essential (primary) hypertension; R94.31 Abnormal electrocardiogram [ECG] [EKG]
CPT/HCPCS: 36415; 71275; 74174; 76705; 80053; 81003; 83605; 83690; 84484; 85025; 85610; 85730; 93005; 96361; 96374; 96375; 99284; J0360; J1171; J1885; J2405; J3010; J7120; Q9967

== ENCOUNTER 2024-11-08 09:29 | Outpatient (CLI) | payer OTHER, SELFPAY ==
[2024-11-08 10:23] LABS: Amylase 63 U/L (30-110)
== END 2024-11-08 09:30 | disposition home or self-care (01) ==
PROVIDERS: PCP Physician Assistant; Visit Provider Surgery
DX: K80.20 Calculus of gallbladder without cholecystitis without obstruction (principal)
CPT/HCPCS: 36415; 82150

== ENCOUNTER 2024-11-11 00:18 | Day surgery (SDC) | payer OTHER, SELFPAY ==
[2024-11-01 12:43] VITALS: BMI 40.6
--- NOTE | 2024-11-01 12:57 | SUR.PREOP ---
Report to the Outpatient Waiting Room, entrance under the green pavilion located off [facility], at time 7:30a.m. on date October . Planned Procedure Time 9:30a.m..? Time changes happen often and if your time is changed the preop area will call you the afternoon before. - You and your visitor will be asked to self-screen and do not enter if you have any COVID symptoms. Please call surgeon if you need to reschedule. - A mask is optional within the hospital at this time. Patients may have clear liquids (water, carbonated beverages, clear teas, apple juice) until 3 hours prior to surgery with a maximum of 20 ounces. - No food from midnight until time of surgery and no smoking. This includes no chewing gum, candy or mints. - Take only the following medications with a SIP of water on the morning of surgery: amlodipine, hydroxyzine, lamotrigine DO NOT STOP ANY OF YOUR OTHER PRESCRIPTION MEDICATIONS PRIOR TO SURGERY EXCEPT THE FOLLOWING Medications to discontinue per physician N/A Date to take last dose N/A Please no make-up, nail english, hairspray, perfume, deodorant, or body powder the day of surgery.? No jewelry (including any body piercings) or valuables the day of surgery, leave them at home.? Please take a shower or bath the night before, or the morning of, surgery with an antibacterial soap.? Wear comfortable, loose fitting clothing.? Children are encouraged to wear pajamas. - Jewelry must be removed prior to entering the operating room.? Rings and piercings that are not removed may be cut off. - The hospital will not accept responsibility for valuables.? - Please leave all valuables, including medications, at home the day of surgery. If you are going home after surgery, a licensed pizza driver must drive you home.? - NO public transportation without another adult if you receive anesthesia. - We recommend that an adult stay with you for 24 hours following discharge. - We also recommend that you do not drive, make important decision, drink alcoholic beverages, or take any drugs that were not prescribed by your health care provider for at least 24 hours after your discharge time. For Pediatric surgeries, we recommend two adults accompany the child home. Follow any additional instructions given to you from your surgeon. Telephone instructions given to Jermain Pfeiffer and asked if any additional questions and then verbalized understanding. Patient advised to call surgeon office or pre surgery nurse liaison [phone] if any additional questions.
[2024-11-11] VITALS (9 sets, daily range): BP systolic 128–165; BP diastolic 53–104; PULSE 68–82; RESP 16–21; TEMP 36.2–36.4; O2SAT 90–95
[2024-11-11] MEDS: ACETAMINOPHEN 500 MG TABLET 1000 MG PO (08:00)
[2024-11-11] MEDS: LACTATED RINGERS 1,000 ML 30 ML IV CONT ×2 (08:05→11:05)
[2024-11-11] MEDS: KETOROLAC 15 MG/ML VIAL (*BKC) IV PUSH (08:10)
--- NOTE | 2024-11-11 08:24 | WPDANESEPPF ---
Anes - Initial Pre Proc Eval Procedure: Operation Date: 11/11/24 09:30 Proposed Procedures p Laparoscopic Cholecystectomy, Possible Open - Rito Maldonado MD Date/Time: 11/11/24 08:24 Surgeon: Rito Maldonado MD Pre Op Diagnosis: symptomatic cholelithiasis Patient Data Age: 34 Gender: M Height: 1.83 m Weight: 138.6 kg Last Vital Signs Temp 97.5 F L 11/11/24 07:39 Pulse 82 11/11/24 07:39 Resp 16 11/11/24 07:39 BP 165/104 H 11/11/24 07:39 Pulse Ox 95 11/11/24 07:39 O2 Del Method Room Air 11/11/24 07:39 Allergies Allergy/AdvReac Type Severity Reaction Status Date / Time poison anat extract Allergy Rash Verified 11/11/24 07:40 poison oak extract Allergy Rash Verified 11/11/24 07:40 poison sumac extract Allergy Rash Verified 11/11/24 07:40 Home Medications ?Medication ?Instructions ?Recorded ?Confirmed ?Type amlodipine 10 mg tablet 10 mg PO DAILY 10/25/24 11/11/24 History hydroxyzine HCl 10 mg tablet 10 mg PO TID PRN anxiety 10/25/24 11/11/24 History lamotrigine 25 mg tablet 25 mg PO DAILY 10/25/24 11/11/24 History losartan 100 mg tablet 100 mg PO DAILY 10/25/24 11/11/24 History Patient hx anesthesia problems: none Family hx anesthesia problems: none Results Review: All pre-operative results and documents have been reviewed as part of the pre-operative evaluation. [facility] Past Medical History Medical History Hypertension Anxiety Family History Family History Other Asthma Cerebrovascular accident Depression Heart disease Hypertension Social History Social History Smoking packs per day: 1 Smoking cigarettes per day: 20.0 Years smoked: 15 Smoking pack-years: 15.00 Smoking status: Smoker, status unknown Tobacco type: cigarettes Alcohol intake: current Substance use: never Substance use type: does not use Do You Feel Safe in your Home?: Yes Lack of Transportation: No Lack of Food: Sometimes True Current Housing: I Have Housing Concerned About Future Housing: No Difficulty Paying Gas/Electric Bills: No Difficulty Paying for Meds: No Currently Unemployed: No Education: High School Diploma/GED Difficulty w/ Childcare or Family Care: No Living arrangements: with family Occupation/Education: occupation 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 HTN, smoker, 1.5 ppd for 20 years, [place] w BMI 41. 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 Informed Consent: The patient's anesthetic plan and its attendant risks and benefits were discussed with the patient/family/POA. Questions were solicited and answers provided to the satisfaction of the patient/family/POA.
--- NOTE | 2024-11-11 09:04 | WPDHPUPDATE1 ---
History and Physical Update Update Date/Time: 11/11/24 09:04 History and Physical has been reviewed, including an updated exam of the patient. There are NO changes in the patient's condition. Risks, benefits, and alternatives have been discussed and questions answered. Patient agrees to proceed with procedure.
[2024-11-11] MEDS: ceFAZolin 3 GM/D5W 100 ML 100 ML IVPB (09:36)
[2024-11-11] MEDS: LIDO 1%/EPINEPHRINE 1:100,000 50 ML VIAL 30 ML INFILTRATE (10:09)
[2024-11-11] MEDS: BUPivacaine HCL 0.5% 10 ML AMP 30 ML INFILTRATE (10:10)
--- NOTE | 2024-11-11 11:05 | W.PM.PROC2 ---
Procedure Note - Detailed Date of Procedure 11/11/24 Pre-op Diagnosis symptomatic cholelithiasis Post-op Diagnosis Other (Chronic cholecystitis secondary to cholelithiasis) Procedure Performed Laparoscopic cholecystectomy Surgeon Rito Maldonado MD Convertible Power Shovel Operator Shivani Bedolla [facility] Anesthesia General Indications Patient 34-year-old white male who presented to the emergency room with right upper quadrant epigastric abdominal pain. Imaging showed cholelithiasis. Seen back in the office and complained of having intermittent and fairly longstanding right upper quadrant epigastric abdominal pain associated with eating. Likely has at least symptomatic cholelithiasis if not chronic cholecystitis due to gallstones. He presents now for elective laparoscopic cholecystectomy. Findings The gallbladder had multiple large gallstones within it. The gallbladder wall was thickened but not acutely inflamed. There were no adhesions to the gallbladder wall. All the inflammation appeared to be chronic. Description of Procedure After informed consent was obtained patient brought to the operating room was placed supine position and general endotracheal anesthesia was administered. The abdomen was then prepped and draped usual sterile fashion. A time-out was then performed correctly identifying the patient as well as procedure to be performed. He was given perioperative IV antibiotics. I then entered the abdomen in the left upper quadrant utilizing a 5mm Optiview port. Once inside the abdomen insufflated to adequate pneumoperitoneum of 15mmHg of CO2. There were no adhesions around the area the umbilicus so I placed a 5mm periumbilical trocar port. The laparoscopic was then switched to the periumbilical trocar port looking into the upper portions of the abdomen I could place a 10mm epigastric trocar port 2 right lateral subcostal 5mm trocar ports all under direct visualization. The gallbladder was easily visualized in the gallbladder wall was thickened. There was no acute edema or erythema of the gallbladder to suggest acute inflammation. Multiple gallstones were noted in the gallbladder. No adhesions were noted to the gallbladder and all the inflammation appeared to be chronic. A laparoscopic grasper used to hold the gallbladder at the dome of the gallbladder was elevated over the right half liver towards the right shoulder. A 2nd grasper was used to hold the gallbladder at the infundibulum. I then proceeded to strip down the visceral peritoneum off of the infundibular gallbladder along with some of the adipose tissue around the infundibulum to identify the cystic duct. The cystic duct was then dissected out circumferentially. Cystic artery was identified and was dissected out circumferentially as well. Posterior wall the gallbladder at the infundibulum dissected free of the liver into the critical view was obtained. At this point I placed 2 clips proximally cystic duct and 2 clips distally on the infundibular gallbladder. The cystic duct was then divided Endo Miles. In a similar fashion cystic artery was clipped and divided as well. The gallbladder was then resected off the liver utilized electrocautery. There was no spillage of gallstones or any bile. The once the gallbladder was free of the liver is placed into an Endo-Catch bag and brought out through the epigastric port site. Gallbladder and contents were sent to pathology for examination. I then irrigated out the right upper quadrant the abdomen gallbladder fossa with sterile saline solution. Hemostasis was good. No evidence of bile leak. I aspirated the fluid from the right upper quadrant the abdomen from the pelvis. I then removed all the trocar ports under direct visualization all port sites appeared hemostatic. I then allowed the abdomen decompressed. The epigastric 10mm trocar port fascial defect was then closed utilizing 3 separate 0 Vicryl sutures at the fascial level. The skin edges in all the port sites were then approximated utilizing a running subcuticular 4 Monocryl suture. The incisions were then cleaned the skin glue sterile dressings were applied. The patient tolerated the procedure well no complications. All sponges, needles, and instrument counts were correct at the end procedure. EBL was _15__cc. The patient was awakened and taken to recovery in stable and satisfactory condition. Implants None Estimated Blood Loss 15 Drains No Packing No Pathology Yes (Gallbladder and gallstones sent to pathology) Complications No immediate complications Condition Stable Disposition PACU [facility] Billing Surgery - Charge Forward: Surgery Billing
[2024-11-11] MEDS: fentaNYL CITRATE INJ (*CRX) 100 MCG/2 ML VIAL 25 MCG IV PUSH ×4 (11:38→11:47)
[2024-11-11] MEDS: ONDANSETRON INJ 4 MG/2 ML VIAL IV PUSH (12:15)
[2024-11-11] MEDS: oxyCODONE HCL (*CRX) 5 MG TAB IR PO (12:27)
--- OUTSIDE RECORDS SUMMARY | 2024-11-17 04:40 | XMS_ITS | Clinical Summary ---
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
--- OUTSIDE RECORDS SUMMARY | 2024-11-17 04:40 | XMS_ITS | Referral Summary ---
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
--- OUTSIDE RECORDS SUMMARY | 2024-11-17 04:40 | XMS_ITS | CONTINUITY OF CARE DOCUMENT ---
Author Name ritacalmere Address Unknown Organization [facility] Address [address] [place] [address] Phone [phone] Care Team Providers Care Rattan Worker Name Role Phone Luis OLIVIER, [facility] Unavailable MELVIN GRAHAM Unavailable MELVIN GRAHAM Unavailable [phone] INSURANCE PROVIDERS Payer name Policy type / Coverage type Floyd red alliance party ID [place] MED[place] Medicaid [id number]
== END 2024-11-11 13:01 | disposition home or self-care (01) ==
PROVIDERS: PCP Physician Assistant; Visit Provider Surgery
PROC: 0FT44ZZ Resection of Gallbladder, Percutaneous Endoscopic Approach (ICD-10-PCS; CPT 47562; principal; 2024-11-11 09:30)
DX: K80.10 Calculus of gallbladder with chronic cholecystitis without obstruction (principal); I10 Essential (primary) hypertension; F41.9 Anxiety disorder, unspecified; E66.01 Morbid (severe) obesity due to excess calories; Z68.41 Body mass index [BMI] 40.0-44.9, adult; Z87.891 Personal history of nicotine dependence; Z82.49 Family history of ischemic heart disease and other diseases of the circulatory system
CPT/HCPCS: 47562; 88304; A9270; J0330; J0690; J1100; J1171; J1885; J2003; J2004; J2250; J2405; J2704; J3010; J7120

== ENCOUNTER 2024-12-03 11:33 | Emergency (ER) | payer OTHER, SELFPAY ==
--- NOTE | ~2024-12-03 | CT_ITS ---
EXAMINATION: CT abdomen pelvis w con DATE: 12/03/2024 12:24 INDICATION: Abdominal pain. TECHNIQUE: Computed tomography (CT) of the abdomen and pelvis was performed with 100 mL Omnipaque 350 intravenous contrast. Automated exposure control and iterative reconstruction technique were employe d. The dose-length product was 1817.58 mGy-cm. COMPARISON: CT abdomen and pelvis 10/09/2024 FINDINGS: The visualized portions of the lung bases demonstrate a pneumatocele in right lower lobe. A calcified right lung nodule is consistent with old granulomatous disease. No pleural effusion. The h eart size is normal. No pericardial effusion. The liver and spleen are normal. There are changes of c holecystectomy. The pancreas, adrenal glands, and kidneys are normal. There are mildly dilated loops of jejunum. The appendix is normal. There are bilateral inguinal hernias containing fat. There are no pathologically enlarged lymph nodes. There is no free intraperitoneal fluid. There is mild thoracic and lumbar spondylosis. IMPRESSION: 1. Mildly dilated jejunum, likely adynamic ileus. Reviewed, dictated and finalized at location A. S COMPENSATION ANALYST
--- OUTSIDE RECORDS SUMMARY | 2024-12-03 11:36 | XMS_ITS | Clinical Summary ---
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 Gender Identity Not on file Sexual Orientation Not on file Last Filed Vital Signs Vital Sign Reading Time Taken Comments Blood Pressure 164/98 08/08/2024 4:05 AM CDT Pulse 80 08/08/2024 5:30 AM CDT Temperature 37.4 C (99.3 F) 08/07/2024 11:42 PM CDT Respiratory Rate 22 08/08/2024 5:30 AM CDT [...] Visit/Exam 18-64 2008 Influenza Vaccine (#1) 2024 Hepatitis B Screening Completed 05/09/2004 , 10/09/2003, 06/09/2003 HPV Vaccines Aged Out No longer eligi ble based on patient's age to complete this topic Pneumococcal vaccine <65 Aged Out No longer eligible based on patient's age to complete this topic Insurance Care Teams Stopper Grinder Relationship Specialty Start Date End Date No, Physician PCP - General 08/07/24
--- OUTSIDE RECORDS SUMMARY | 2024-12-03 11:36 | XMS_ITS | CONTINUITY OF CARE DOCUMENT ---
Author Name mere severino Address Unknown Organization [facility] Address [address] [place] [address] Phone [phone] Care Team Providers Care Diesel Mechanic Construction Name Role Phone Dangelo Marquis MD Unavailable MELVIN GRAHAM Unavailable MELVIN GRAHAM Unavailable [phone] PROBLEMS Condition Status Date Provider Notes Chest pain-type to be determined active Niharika Marquis MD Cardiomyopathy active Dangelo Marquis MD HTN essential active Dangelo Marquis MD ENCOUNTERS Date Type Provider Location Encounter Diag nosis - In-person encounter Office Visit Dangelo Marquis MD [place] [facility] Chest pain-type to be determinedCardiomyopathyHTN essential VITAL SIGNS Date Observation Value Provider Body Mass Index (Ratio) 42.17 kg/m2 Richard Marquis MD blood pressure, diastolic 105 mm[Hg] Poonam nkLogkeyshawn blood pressure, systolic 196 mm[Hg] Madeline kLogkeyshawn weight E&M 311 [lb_av] Karla abreu pulse rate 89 /min Karla abreu oxygen saturation, oximetry 95 % Karla Elizabeth blood pressure, diastolic 105 mm[Hg] Stefania Elizabeth blood pressure, systolic 196 mm[Hg] Norma Elizabeth height E&M 72 [in_i] Karla Montiel s blood pressure, cuff size regular An lala Andriy ALLERGIES Allergy Name Onset Date Reaction Criticality Status POISON SANTY Rash Low Criticality active HISTORY OF MEDICATION USE Medication Status Instructions Dates Provider Indications Com ments lamotrigine 50 mg tablet extended release 24hr active Karla Elizabeth amlodipine 10 mg tablet active Karla Elizabeth losartan 100 mg tablet active Karla Elizabeth Cipro 500 mg tablet active Karla Elizabeth Claritin 10 mg tablet active Karla Elizabeth hydroxyzine HCl 25 mg tablet active Karla Elizabeth INSURANCE PROVIDERS Payer name Policy type / Coverage type Damon red libertarian ID [place] MEDICAID Medicaid [id number] ADVANCE DIRECTIVES Name Date DISCUSSED - NO DECISION MADE TREATMENT PLAN Date Name Performer Cardiology:obtain EC HO results. His updated medication list for this problem includes: Amlodipine 10 Mg Tablet (Amlodipine) Losartan 100 Mg Tablet (Losartan) Dangelo Marquis MD Cardiology: H is updated medication list for this problem includes: Amlodipine 10 Mg Tablet (Amlodipine) Losartan 100 Mg Tablet (Losartan) Dangelo Marquis MD Cardiology:obtain EC HO results. His updated medication list for this problem includes: Amlodipine 10 Mg Tablet (Amlodipine) Losartan 100 Mg Tablet (Losartan) Dangelo Marquis MD Cardiology: O rders: 9 9203 LTD 30-44min (CPT-57311) E KG (CPT-44409) C omplex e/m visit add on (G2211) His updated medication list for this problem includes: Amlodipine 10 Mg Tablet (Amlodipine) Dangelo Marquis MD Date Name Stress Routine EKG HISTORY OF PROCEDURES Procedure Date Procedure Name Provider Procedure Notes S tatus Complex e/m visit ad d on Dangelo Marquis MD completed
--- OUTSIDE RECORDS SUMMARY | 2024-12-03 11:36 | XMS_ITS | Referral Summary ---
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
[2024-12-03 11:38] VITALS: BP 162/78; PULSE 92; RESP 18; TEMP 36.6; O2SAT 98
--- NOTE | 2024-12-03 11:49 | ECG_ITS ---
Test Date: 2024-12-03 12:05:22 Measurements Intervals [place] Rate: 85 P: 2 DC: 167 QRS: 37 QRSD: 97 T: 50 QT: 387 QTc: 461 Interpretive Statements SINUS RHYTHM DELAYED PRECORDIAL R/S TRANSITION LEFT VENTRICULAR HYPERTROPHY WITH ST-T CHANGE BORDERLINE ECG Compared to ECG 10/09/2024 05:43:32 NO SIGNIFICANT CHANGE Electronically Signed On 12-03-2024 13:11:55 TRANSPORTATION COORDINATOR by Mumtaz Ferguson D.O.
--- OUTSIDE RECORDS SUMMARY | 2024-12-03 11:49 | XMS_ITS | CONTINUITY OF CARE DOCUMENT ---
Author Name mere severino Address Unknown Organization [facility] Address [address] [place] [address] Phone [phone] Care Team Providers Care Woods Boss Name Role Phone Dangelo Marquis MD Unavailable MELVIN GRAHAM Unavailable MELVIN GRAHAM Unavailable PROBLEMS Condition Status Date Provider Notes Chest pain-type to be determined active Niharika Marquis MD Cardiomyopathy active Dangelo Marquis MD HTN essential active Dangelo Marquis MD ENCOUNTERS Date Type Provider Location Encounter Diag nosis - In-person encounter Office Visit Dangelo Marquis MD [place] [facility] Chest pain-type to be determinedCardiomyopathyHTN essential [...] Policy type / Coverage type Damon red alliance party ID [place] MEDICAID Medicaid [id number] ADVANCE DIRECTIVES Name Date DISCUSSED - NO [...] Cardiology: O rders: 9 9203 LTD 30-44min (CPT-53216) E KG (CPT-01513) C omplex e/m visit add on (G2211) His updated medication list for this problem includes: Amlodipine 10 Mg Tablet (Amlodipine) Dangelo Marquis MD Date Name Stress Routine EKG HISTORY OF PROCEDURES Procedure Date Procedure Name Provider Procedure Notes S tatus Complex e/m visit ad d on Dangelo Marquis MD completed
--- NOTE | 2024-12-03 11:54 | ED_ITS ---
HPI - Nausea/Vomiting/Diarrhea General Chief complaint: Nausea/Vomiting/Diarrhea Stated complaint: upper abd pain, NV Time Seen by Provider: 12/03/24 11:40 History of Present Illness HPI Narrative: 34-year-old male with a past medical history including symptomatic cholelithiasis status post laparoscopic cholecystectomy several weeks prior with Dr. Maldonado. Today patient presents to the emergency room with chief complaint of epigastric abdominal pain associated with gaseous bloating, nausea, vomiting. He states he has been on for last 2 days. He called his general surgeon who instructed to go the ER and obtain workup including CT scans and blood work. Patient self states he was doing well postoperatively and feeling great until this happened 2 days prior. Feels very similar to last time he had a gallstone. Denies any fever chills. No chest discomfort shortness of breath. No diarrhea or sick contacts. Related Data Home Medications ?Medication ?Instructions ?Recorded ?Confirmed ?Last Taken ?Type amlodipine 10 mg tablet 10 mg PO DAILY 10/25/24 11/11/24 11/11/24 History hydroxyzine HCl 10 mg tablet 10 mg PO TID PRN anxiety 10/25/24 11/11/24 11/11/24 History lamotrigine 25 mg tablet 25 mg PO DAILY 10/25/24 11/11/24 11/11/24 History losartan 100 mg tablet 100 mg PO DAILY 10/25/24 11/11/24 11/10/24 History Allergies Allergy/AdvReac Type Severity Reaction Status Date / Time poison anat extract Allergy Rash Verified 11/11/24 07:40 poison oak extract Allergy Rash Verified 11/11/24 07:40 poison sumac extract Allergy Rash Verified 11/11/24 07:40 Review of Systems 2 Review of Systems: As reviewed [facility] Past Medical History Medical History Hypertension Anxiety Family History Family History Other Asthma Cerebrovascular accident Depression Heart disease Hypertension Social History Social History Smoking packs per day: 1 Smoking cigarettes per day: 20.0 Years smoked: 15 Smoking pack-years: 15.00 Smoking status: Smoker, status unknown Tobacco type: cigarettes Alcohol intake: current Substance use: never Substance use type: does not use Do You Feel Safe in your Home?: Yes Lack of Transportation: No Lack of Food: Sometimes True Current Housing: I Have Housing Concerned About Future Housing: No Difficulty Paying Gas/Electric Bills: No Difficulty Paying for Meds: No Currently Unemployed: No Education: High School Diploma/GED Difficulty w/ Childcare or Family Care: No Living arrangements: with family Occupation/Education: 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 HEAD: [Normocephalic, atraumatic.] EYES: [PERRLA and EOMI.] ENT: Nares clear, no rhinorrhea or epistaxis. Mucous membranes moist. NECK: Supple. CHEST: [Clear to auscultation. No respiratory distress.] HEART: [Regular rate and rhythm]. No murmur heard. [Normal peripheral pulses.] ABDOMEN: [Soft, nondistended], minimally tender in the epigastrium but no rebound or guarding overlying skin changes. Previous laparoscopic surgical scars appear clean, dry, intact without any signs of dehiscence or wound irritation/infection, [No rigidity or guarding] EXTREMITIES: Normal range of motion. [No edema.] SKIN: Warm, dry, no rash. NEURO: [No focal deficits]. Alert and oriented [x3.] PSYCH: [Normal mood and affect.] Course Vital Signs Vital signs: Vital Signs Temperature 36.6 C 12/03/24 11:38 Pulse Rate 92 12/03/24 11:38 Respiratory Rate 18 12/03/24 11:38 Blood Pressure 162/78 H 12/03/24 11:38 Pulse Oximetry 98 12/03/24 11:38 Oxygen Delivery Room Air 12/03/24 11:38 Temperature 36.6 C 12/03/24 12:31 Pulse Rate 74 12/03/24 12:31 Respiratory Rate 16 12/03/24 12:31 Blood Pressure 168/91 H 12/03/24 12:31 Pulse Oximetry 100 12/03/24 12:31 Oxygen Delivery Room Air 12/03/24 11:38 MDM - Nausea/Vomiting/Diarrhea MDM Narrative Medical decision making narrative: 34-year-old male status post laparoscopic cholecystectomy with Dr. Maldonado. Presents today with nausea, vomiting, epigastric abdominal discomfort. He is approximately 3 weeks postop and doing well but for last 2 days has been having symptoms. He is hypertensive but not severe range, no tachycardia, fever, hypoxia. His wounds from his laparoscopic surgery appear clean, dry, intact without any signs of irritation or infection. He has a soft nondistended abdomen but minimally tender in the epigastrium. Patient and family report that they called Dr. Maldonado who referred them to the ER for CT scans and laboratory assessment. Will obtain a CT scan with IV contrast to make sure there is no bile leak or any abscess formation his previous surgical site or any other new abdominal process. CBC, CMP, lactic acid, lipase and EKG were obtained. COVID flu and RSV swabs obtained, he was given symptomatic treatment with Zofran and morphine. Fluid bolus provided. Patient will be re-evaluated after interventions. Patient was re-evaluated after the 1st round of medications and states that he still feels persistently nauseous and having worsening pain although he does not appear uncomfortable and has a benign examination. His workup shows a leukocytosis of 19.3 which is unusual and potentially reactive from his nausea and vomiting and less likely infectious source but still possible, no anemia or platelet concerns. Normal LFTs, normal renal function. CT scan shows no concerning process aside from some adynamic ileus likely secondary to his recent surgery but no signs of obstruction, abscess or infection. Patient was provided additional antiemetic therapy with intravenous Haldol and re-evaluated afterwards. Urinalysis and urine drug screen pending. I was informed by patient and family that he had a very heavy greasy meal yesterday including sloppy Pep which likely triggered this. Patient was re-evaluated after the Haldol and had significant improvement, no longer symptomatic, tolerating p.o. intake and his pain is controlled. Dr. Maldonado was spoken to over the phone and relayed the patient's presentation, imaging results and clinical exam findings. I was informed by the surgeon that he had missed follow-up appointments after his laparoscopic cholecystectomy. Will follow with him outpatient. Patient is safe and stable for discharge home and patient comfortable with this plan of care and given strict return precautions as well. Medical Records Attestation: I reviewed the patient's medical records. Lab Data Attestation: I reviewed the patient's lab results. 12/03/24 11:53 12/03/24 12:04 Labs: Lab Results 12/03/24 12/03/24 12/03/24 Range/Units 11:53 12:04 12:54 WBC 19.3 H (4.5-10.0) K/mm3 RBC 5.71 (4.6-6.20) M/mm3 Hgb 15.4 (14.0-18.0) g/dL Hct 46.8 (42.0-52.0) % MCV 82.0 (80-100) fl MCH 27.0 (26-34) pg MCHC 32.9 (32-36) g/dl RDW 14.0 (11.5-14.5) % Plt Count 303 (150-375) k/mm3 MPV 8.9 (7.4-10.4) fl Immature Gran % (Auto) 0.5 (0-0.5) % Neut % (Auto) 90.7 H (45.5-73.1) % Lymph % (Auto) 3.1 L (18.3-44.2) % Daniels % (Auto) 4.6 (2.6-8.5) % Eos % (Auto) 0.8 (0-4.4) % Baso % (Auto) 0.3 (0.2-1.2) % Lymph # (Auto) 0.60 L (0.9-3.2) K/mm3 Daniels # (Auto) 0.9 H (0.1-0.6) K/mm3 Eos # (Auto) 0.2 (0-0.3) K/mm3 Baso # (Auto) 0.1 (0.0-0.1) K/mm3 Abs Immat Gran (auto) 0.10 H (0.00-0.031) K/mm3 Absolute Neuts (auto) 17.6 H (1.3-6.7) K/mm3 Absolute Nucleated RBC 0.000 (0.0-0.012) K/mm3 Nucleated RBC % 0.0 (0.0-0.2) % Sodium 140 (137-145) mmol/L Potassium 4.1 (3.4-5.0) mmol/L Chloride 106 (98-107) mmol/L Carbon Dioxide 24 (22-30) mmol/L Anion Gap 10 (4-12) mmol/L BUN 19 (9-20) mg/dL Creatinine 0.81 0.90 (0.7-1.3) mg/dL Estim Creat Clear Calc 172 156 ml/min Estimated GFR > 60 > 60 (59 - ) Glucose 107 (65-110) mg/dL Lactic Acid 1.3 (0.7-2.0) mmol/L Calcium 9.3 (8.4-10.2) mg/dL Total Bilirubin 1.0 (0.2-1.3) mg/dL AST 24 (17-59) U/L ALT 30 (6-50) U/L Alkaline Phosphatase 80 (38-126) U/L Total Protein 8.0 (6.3-8.2) g/dL Albumin 4.6 (3.5-5.1) g/dL Lipase 202 (23-300) U/L Urine Color Yellow (Yellow) Urine Appearance Clear (Clear) Urine pH 7.5 (5.0-9.0) Ur Specific [place] > 1.045 H (1.001-1.035) Urine Protein Trace (Negative) mg/dL Urine Glucose (UA) Negative (Negative) mg/dL Urine Ketones Negative (Negative) mg/dL Ur Blood (Man) Negative (Negative) Urine Nitrate Negative (Negative) Urine Bilirubin Negative (Negative) Urine Urobilinogen 1.0 (<2.0) mg/dL Leukocyte Esterase Rfl Negative (Negative) KAROL/UL Urine RBC 0-2 (0-2) /hpf Urine WBC 0-5 (0-3) /hpf Ur Squamous Epith Cells None seen (Few) /hpf Urine Bacteria None seen /hpf Urine Casts 0-2 Urine Opiates Screen Positive A (Negative) Urine Methadone Screen Negative (Negative) Ur Barbiturates Screen Negative (Negative) Ur Phencyclidine Scrn Negative (Negative) Ur Amphetamine Screen Negative (Negative) U Benzodiazepines Scrn Negative (Negative) Urine Cocaine Screen Negative (Negative) U Cannabinoids Screen Negative (Negative) Influenza A (RT-PCR) Negative (Negative) Influenza B (RT-PCR) Negative (Negative) RSV (RT-PCR) Negative (Negative) SARS-CoV-2 RNA (RT-PCR) Negative (Negative) Imaging Data Attestation: I personally reviewed and interpreted this imaging study as follows: My impression: Impressions Abdomen/Pelvis CT 12/03/24 12:28 IMPRESSION: 1. Mildly dilated jejunum, likely adynamic ileus. Discharge Plan Discharge Clinical Impression: Abdominal pain, Status post laparoscopic cholecystectomy, Nausea & vomiting Patient Disposition: Home, Self-Care Condition: Stable Instructions: Antibiotic Form, Acute Nausea and Vomiting (DC), Abdominal Pain (ED), Ileus (ED) Additional Instructions: Your CT scan was very reassuring, no signs of blockage or infection. We will send you home with some symptom control medications for treatment, follow-up with regular doctor and your general surgeon on outpatient basis. Return with any new or worsening concerns. Patient Language: Austrian Prescriptions: No Action losartan 100 mg tablet 100 mg PO DAILY hydroxyzine HCl 10 mg tablet 10 mg PO TID PRN (Reason: anxiety) lamotrigine 25 mg tablet 25 mg PO DAILY amlodipine 10 mg tablet 10 mg PO DAILY oxycodone 10 mg tablet 10 mg PO Q6H PRN (Reason: pain) Qty: 25 0RF Follow-up/Referrals: Arturo,GEMA Hall [Primary Care Provider] - Time of Disposition: 14:04
[2024-12-03 11:59] LABS: Basophils Absolute Auto 0.1 K/mm3 (0.0-0.1); Basophils Percent Auto 0.3 % (0.2-1.2); Eosinophils Absolute Auto 0.2 K/mm3 (0-0.3); Eosinophils Percent Auto 0.8 % (0-4.4); Hematocrit 46.8 % (42.0-52.0); Hemoglobin 15.4 g/dL (14.0-18.0); Immature Granulocyte Percent A 0.5 % (0-0.5); Lymphocytes Percent Auto 3.1 % (18.3-44.2); Mean Corpuscular HGB Conc 32.9 g/dl (32-36); Mean Platelet Volume 8.9 fl (7.4-10.4); Monocytes Absolute Auto 0.9 K/mm3 (0.1-0.6); Monocytes Percent Auto 4.6 % (2.6-8.5); Neutrophils Absolute Auto 17.6 K/mm3 (1.3-6.7); Neutrophils Percent Auto 90.7 % (45.5-73.1); Platelet Count Result 303 k/mm3 (150-375); Red Blood Count 5.71 M/mm3 (4.6-6.20); White Blood Count 19.3 K/mm3 (4.5-10.0)
[2024-12-03 12:01] VITALS: BP 143/88; PULSE 78; RESP 16; O2SAT 100
[2024-12-03 12:07] LABS: Estimated CRCL calculation 156 ml/min; Estimated Glomerular Filt Rate > 60
[2024-12-03 12:08] LABS: Lactic Acid Reflex 1.3 mmol/L (0.7-2.0)
[2024-12-03 12:09] LABS: Alanine Aminotransferase 30 U/L (6-50); Albumin Level 4.6 g/dL (3.5-5.1); Alkaline Phosphatase 80 U/L (38-126); Anion Gap 10 mmol/L (4-12); Aspartate Amino Transferase 24 U/L (17-59); Blood Urea Nitrogen 19 mg/dL (9-20); Calcium 9.3 mg/dL (8.4-10.2); Carbon Dioxide 24 mmol/L (22-30); Chloride 106 mmol/L (98-107); Estimated CRCL calculation 172 ml/min; Estimated Glomerular Filt Rate > 60; Glucose 107 mg/dL (65-110); Lipase 202 U/L (23-300); Potassium 4.1 mmol/L (3.4-5.0); Sodium 140 mmol/L (137-145)
[2024-12-03] MEDS: LACTATED RINGERS 1,000 ML 999 ML IV CONT (12:23)
[2024-12-03] MEDS: FAMOTIDINE 20 MG/2 ML VIAL IV PUSH (12:24)
[2024-12-03] MEDS: MORPHINE SULFATE (*CRX) 4 MG/ML INJ IV PUSH (12:24)
[2024-12-03 12:31] VITALS: BP 168/91; PULSE 74; RESP 16; TEMP 36.6; O2SAT 100
[2024-12-03 12:35] LABS: Influenza A QL RT-PCR Negative (Negative); Influenza B QL RT-PCR Negative (Negative); RSV RNA, RT-PCR Negative (Negative); SARS-CoV-2 RNA PCR Negative (Negative)
[2024-12-03] MEDS: HALOPERIDOL LACTATE 5 MG/ML VIAL IV PUSH (12:53)
[2024-12-03 13:07] LABS: Add Urine Microscopic? YES; Appearance Urine Clear (Clear); Bacteria Urine None Seen /hpf; Bilirubin Urine Negative (Negative); Blood Urine Negative (Negative); Color Urine Yellow (Yellow); Glucose Urine UA Negative (Negative); Ketones Urine Negative (Negative); Leukocyte Esterase Ur Negative LEU/UL (Negative); Nitrate Urine Negative (Negative); Non Pathogenic Casts 0-2; Protein Urine Trace mg/dL (Negative); RBC Urine 0-2 /hpf (0-2); Specific Grav Ur > 1.045 (1.001-1.035); Squamous Epithelial Cell Urine None Seen /hpf (Few); WBC Urine 0-5 /hpf (0-3); pH Urine 7.5 (5.0-9.0)
[2024-12-03 13:28] LABS: Amphetamine Screen Urine Negative (Negative); Barbiturate Screen Urine Negative (Negative); Benzodiazepines Screen Urine Negative (Negative); Cannabinoid Screen Urine Negative (Negative); Cocaine Screen Urine Negative (Negative); Methadone Screen Urine Negative (Negative); Opiate Screen Urine Positive (Negative); Phencyclidine Screen Urine Negative (Negative)
[2024-12-03 13:30] VITALS: BP 148/80; PULSE 78; RESP 16; TEMP 36.5; O2SAT 100
== END 2024-12-03 14:12 | disposition home or self-care (01) ==
PROVIDERS: Emergency Provider Student in an Organized Health Care Education/Training Program; PCP Physician Assistant
DX: R10.13 Epigastric pain (principal); R11.2 Nausea with vomiting, unspecified; Z90.49 Acquired absence of other specified parts of digestive tract; Z20.822 Contact with and (suspected) exposure to COVID-19; I10 Essential (primary) hypertension; F17.210 Nicotine dependence, cigarettes, uncomplicated; Z79.899 Other long term (current) drug therapy; I51.7 Cardiomegaly
CPT/HCPCS: 36415; 74177; 80053; 80307; 81001; 83605; 83690; 85025; 87637; 93005; 96361; 96374; 96375; 99284; J1630; J2270; J7120; Q9967

== ENCOUNTER 2025-01-03 21:41 | Emergency (ER) | payer OTHER, SELFPAY ==
--- NOTE | ~2025-01-03 | CT_ITS ---
Non-contrast CT scan of the Abdomen and Pelvis Clinical indication: Abdominal pain Technique: 2.5 mm axial scans were obtained through the abdomen and pelvis without intravenous or or al contrast. Dose reduction technique was used on this scan by utilizing automated exposure control a nd iterative reconstruction technique. The dose-length product (DLP) was 1688.96 mGy-cm. COMPARISON: 12/03/2024 Findings: Images through the lung bases reveal no abnormalities. There is a 5 mm at the right UVJ, with minimal fullness of the right ureter, no suzan hydronephrosis. No left-sided stones. No left hydronephrosis. The liver, spleen, pancreas, and adrenals appear normal. Cholecystectomy clips are present. There is no aortic aneurysm. There is no evidence of bowel obstruction. Images through the pelvis were performed. There is no evidence of ascites or lymphadenopathy. Urinary bladder otherwise unremarkable. No pelvic mass seen. Impression: 5 mm right UVJ stone with minimal fullness of the right ureter, but no suzan hydronephrosis. Reviewed, dictated and finalized at location . Impression: 5 mm right UVJ stone with minimal fullness of the right ureter, but no suzan hy dronephrosis.
--- OUTSIDE RECORDS SUMMARY | 2025-01-03 21:43 | XMS_ITS | Clinical Summary ---
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
--- OUTSIDE RECORDS SUMMARY | 2025-01-03 21:43 | XMS_ITS | CONTINUITY OF CARE DOCUMENT ---
Author Name mere severino Address Unknown Organization [facility] Address [address] [place] [address] Phone [phone] Care Team Providers Care Glue Reel Operator Name Role Phone Dangelo Marquis MD Unavailable MELVIN GRAHAM Unavailable [phone] MELVIN GRAHAM Unavailable PROBLEMS Condition Status Date Provider Notes Chest pain-type to be determined active Niharika Marquis MD Cardiomyopathy active Dangelo Marquis MD HTN essential active Dangelo Marquis MD ENCOUNTERS Date Type Provider Location Encounter Diag nosis - In-person encounter Office Visit Dangelo Marquis MD [place] [facility] Chest pain-type to be determinedCardiomyopathyHTN essential [...] Damon red libertarian [place] MEDICAID Medicaid [id number] ADVANCE DIRECTIVES Name Date DISCUSSED - NO [...] Cardiology: O rders: 9 9203 LTD 30-44min (CPT-96883) E KG (CPT-65168) C omplex e/m visit add on (G2211) His updated medication list for this problem includes: Amlodipine 10 Mg Tablet (Amlodipine) Dangelo Marquis MD Date Name Stress Routine EKG HISTORY OF PROCEDURES Procedure Date Procedure Name Provider Procedure Notes S tatus Complex e/m visit ad d on Dangelo Marquis MD completed
--- OUTSIDE RECORDS SUMMARY | 2025-01-03 21:43 | XMS_ITS | Referral Summary ---
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
[2025-01-03 21:44] VITALS: BP 198/95; PULSE 94; RESP 20; TEMP 36.6; O2SAT 100
[2025-01-03 22:02] LABS: Add Urine Microscopic? YES; Appearance Urine Clear (Clear); Bacteria Urine None Seen /hpf; Bilirubin Urine Negative (Negative); Blood Urine 3+ (Negative); Color Urine Yellow (Yellow); Glucose Urine UA Negative (Negative); Ketones Urine Negative (Negative); Leukocyte Esterase Ur Negative LEU/UL (Negative); Nitrate Urine Negative (Negative); Non Pathogenic Casts 0-2; Protein Urine Negative (Negative); RBC Urine >100 /hpf (0-2); Squamous Epithelial Cell Urine None Seen /hpf (Few); Urobilinogen Urine 0.2 mg/dL (<2.0); WBC Urine 0-5 /hpf (0-3)
--- NOTE | 2025-01-03 22:11 | ED.MALEGU ---
HPI - Male Genitourinary General Chief complaint: Urogenital-Male Stated complaint: uti Time Seen by Provider: 01/03/25 22:01 Source: patient Mode of arrival: ambulatory Limitations: no limitations History of Present Illness HPI Narrative: This is a 34-year-old male with PMH of HTN who presents to the ED for chief complaint of hematuria, dysuria over the past couple of days. Patient reports lower abdominal pain that stretches all across the lower abdomen. States he is not really having any flank pain. States he has had these symptoms in the past but never this consistent for severe. Denies fevers, chills, nausea, vomiting, diarrhea, chest pain, shortness of breath. Denies rash or testicular swelling or pain. Denies pain on discharge. Related Data Home Medications ?Medication ?Instructions ?Recorded ?Confirmed ?Last Taken ?Type amlodipine 10 mg tablet 10 mg PO DAILY 10/25/24 11/11/24 11/11/24 History hydroxyzine HCl 10 mg tablet 10 mg PO TID PRN anxiety 10/25/24 11/11/24 11/11/24 History lamotrigine 25 mg tablet 25 mg PO DAILY 10/25/24 11/11/24 11/11/24 History losartan 100 mg tablet 100 mg PO DAILY 10/25/24 11/11/24 11/10/24 History Allergies Allergy/AdvReac Type Severity Reaction Status Date / Time poison anat extract Allergy Rash Verified 01/03/25 21:48 poison oak extract Allergy Rash Verified 01/03/25 21:48 poison sumac extract Allergy Rash Verified 01/03/25 21:48 Review of Systems Review of Systems: All systems as dictated in [facility] Past Medical History Medical History Hypertension Anxiety Family History Family History Other Asthma Cerebrovascular accident Depression Heart disease Hypertension Social History Social History Smoking packs per day: 1 Smoking cigarettes per day: 20.0 Years smoked: 15 Smoking pack-years: 15.00 Smoking status: Smoker, status unknown Tobacco type: cigarettes Alcohol intake: current Substance use: never Substance use type: does not use Do You Feel Safe in your Home?: Yes Lack of Transportation: No Lack of Food: Sometimes True Current Housing: I Have Housing Concerned About Future Housing: No Difficulty Paying Gas/Electric Bills: No Difficulty Paying for Meds: No Currently Unemployed: No Education: High School Diploma/GED Difficulty w/ Childcare or Family Care: No Living arrangements: with family Occupation/Education: 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 HEAD: Normocephalic, atraumatic. EYES: PERRLA and EOMI. ENT: Nares clear, no rhinorrhea or epistaxis. Mucous membranes moist. Oropharynx without tonsillar hypertrophy exudate or other lesions. NECK: Supple. No adenopathy or masses. CHEST: No respiratory distress. Clear to auscultation. No wheezes rales or rhonchi HEART: Regular rate and rhythm. No murmur heard. Normal peripheral pulses. ABDOMEN: Soft, nontender, nondistended, normal active bowel sounds. MSK: Normal range of motion. No edema. SKIN: Warm, dry, no rash. NEURO: Alert and oriented x4. No focal deficits. PSYCH: Normal mood and affect. Course Vital Signs Vital signs: Vital Signs Temperature 98 F 01/03/25 21:44 Pulse Rate 94 01/03/25 21:44 Respiratory Rate 20 01/03/25 21:44 Blood Pressure 198/95 H 01/03/25 21:44 Pulse Oximetry 100 01/03/25 21:44 Oxygen Delivery Room Air 01/03/25 21:44 Temperature 98 F 01/03/25 21:44 Pulse Rate 88 01/04/25 00:56 Respiratory Rate 15 01/04/25 00:56 Blood Pressure 166/84 H 01/04/25 00:56 Pulse Oximetry 98 01/04/25 00:56 Oxygen Delivery Room Air 01/03/25 21:44 MDM - Male Genitourinary MDM Narrative Medical decision making narrative: This is a 34-year-old male who presents to the ED in renal colic for lower abdominal pain and dysuria. Vitals show elevated blood pressure but otherwise normal. Exam remarkable for the above. Does not appear toxic Work shows microscopic blood on urinalysis. Labs are otherwise unremarkable. CT imaging of the abdomen pelvis without contrast shows recently passed 4 mm stone in the urinary bladder at the right UVJ. Mild residual fullness of the right ureter. On re-evaluation patient is well-appearing. His pain is under control although he is still getting intermittent spasm like pains. He will be sent home a strainer in case there are any more stones descend. Short course of [place] given as well as Flomax. Patient will be discharged in stable condition. Supportive measures discussed and return precautions given. Patient is understanding and agreeable with plan for discharge with Urology follow-up. Lab Data 01/03/25 22:27 01/03/25 22:27 Labs: Lab Results 01/03/25 01/03/25 Range/Units 21:49 22:27 WBC 10.5 H (4.5-10.0) K/mm3 RBC 5.30 (4.6-6.20) M/mm3 Hgb 14.2 (14.0-18.0) g/dL Hct 43.4 (42.0-52.0) % MCV 81.9 (80-100) fl MCH 26.8 (26-34) pg MCHC 32.7 (32-36) g/dl RDW 13.9 (11.5-14.5) % Plt Count 281 (150-375) k/mm3 MPV 9.1 (7.4-10.4) fl Immature Gran % (Auto) 0.4 (0-0.5) % Neut % (Auto) 57.0 (45.5-73.1) % Lymph % (Auto) 32.1 (18.3-44.2) % [place] % (Auto) 7.0 (2.6-8.5) % Eos % (Auto) 2.5 (0-4.4) % Baso % (Auto) 1.0 (0.2-1.2) % Lymph # (Auto) 3.38 H (0.9-3.2) K/mm3 [place] # (Auto) 0.7 H (0.1-0.6) K/mm3 Eos # (Auto) 0.3 (0-0.3) K/mm3 Baso # (Auto) 0.1 (0.0-0.1) K/mm3 Abs Immat Gran (auto) 0.04 H (0.00-0.031) K/mm3 Absolute Neuts (auto) 6.0 (1.3-6.7) K/mm3 Absolute Nucleated RBC 0.000 (0.0-0.012) K/mm3 Nucleated RBC % 0.0 (0.0-0.2) % Sodium 141 (137-145) mmol/L Potassium 3.6 (3.4-5.0) mmol/L Chloride 102 (98-107) mmol/L Carbon Dioxide 27 (22-30) mmol/L Anion Gap 12 (4-12) mmol/L BUN 18 (9-20) mg/dL Creatinine 1.22 (0.7-1.3) mg/dL Estim Creat Clear Calc 109 ml/min Estimated GFR > 60 (59 - ) Glucose 79 (65-110) mg/dL Calcium 9.4 (8.4-10.2) mg/dL Urine Color Yellow (Yellow) Urine Appearance Clear (Clear) Urine pH 6.0 (5.0-9.0) Ur Specific [place] 1.020 (1.001-1.035) Urine Protein Negative (Negative) mg/dL Urine Glucose (UA) Negative (Negative) mg/dL Urine Ketones Negative (Negative) mg/dL Ur Blood (Man) 3+ H (Negative) Urine Nitrate Negative (Negative) Urine Bilirubin Negative (Negative) Urine Urobilinogen 0.2 (<2.0) mg/dL Leukocyte Esterase Rfl Negative (Negative) KAROL/UL Urine RBC >100 H (0-2) /hpf Urine WBC 0-5 (0-3) /hpf Ur Squamous Epith Cells None seen (Few) /hpf Urine Bacteria None seen /hpf Urine Casts 0-2 Discharge Plan Discharge Clinical Impression: Calculus, ureteral Patient Disposition: Home, Self-Care Condition: Stable Instructions: Antibiotic Form, Kidney Stones (ED), How to Strain Your Urine (ED) Additional Instructions: Your exam and imaging today show that you passed a kidney stone on the right side. Symptoms should be subsiding over the next 24 hours. Please follow-up with Urology on this. If you have any new or worsening symptoms please return to the ER for further evaluation. Patient Language: Italian Prescriptions: New tamsulosin [Flomax] 0.4 mg capsule 0.4 mg PO DAILY Qty: 10 0RF ondansetron 4 mg tablet,disintegrating 4 mg PO Q8H PRN (Reason: nausea and vomiting) Qty: 10 0RF hydrocodone-acetaminophen 5-325 mg tablet 1 tablet PO Q8H PRN (Reason: pain) Qty: 7 0RF No Action losartan 100 mg tablet 100 mg PO DAILY hydroxyzine HCl 10 mg tablet 10 mg PO TID PRN (Reason: anxiety) lamotrigine 25 mg tablet 25 mg PO DAILY amlodipine 10 mg tablet 10 mg PO DAILY dicyclomine 20 mg tablet 20 mg PO TID PRN (Reason: abdominal pain) Qty: 20 0RF metoclopramide HCl [Reglan] 5 mg tablet 5 mg PO Q8H PRN (Reason: nausea and vomiting) Qty: 10 0RF oxycodone 10 mg tablet 10 mg PO Q6H PRN (Reason: pain) Qty: 25 0RF Follow-up/Referrals: Arturo,GEMA Hall [Primary Care Provider] - Vanesa Bartlett MD [Physician] - Time of Disposition: 00:28
--- OUTSIDE RECORDS SUMMARY | 2025-01-03 22:13 | XMS_ITS | Clinical Summary ---
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
--- OUTSIDE RECORDS SUMMARY | 2025-01-03 22:13 | XMS_ITS | Referral Summary ---
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
--- OUTSIDE RECORDS SUMMARY | 2025-01-03 22:13 | XMS_ITS | CONTINUITY OF CARE DOCUMENT ---
Author Name mere severino Address Unknown Organization [facility] Address [address] [place] [address] Phone [phone] Care Team Providers Care Design Teacher Name Role Phone Dangelo Marquis MD Unavailable MELVIN GRAHAM Unavailable [phone] MELVIN GRAHAM Unavailable [phone] PROBLEMS Condition Status Date Provider Notes Chest pain-type to be determined active Niharika Marquis MD Cardiomyopathy active Dangelo Marquis MD HTN essential active Dangelo Marquis MD ENCOUNTERS Date Type Provider Location Encounter Diag nosis - In-person encounter Office Visit Dangelo Marquis MD [place] [facility] Chest pain-type to be determinedCardiomyopathyHTN essential [...] Elizabeth Cipro 500 mg tablet active Karla Eliazbeth Claritin 10 mg tablet active Karla Elizabeth hydroxyzine HCl 25 mg tablet active Karla Elizabeth INSURANCE PROVIDERS Payer name Policy type / Coverage type Damon red republican [place] MEDICAID Medicaid [id number] ADVANCE DIRECTIVES Name Date DISCUSSED - NO [...] Cardiology: O rders: 9 9203 LTD 30-44min (CPT-21438) E KG (CPT-05403) C omplex e/m visit add on (G2211) His updated medication list for this problem includes: Amlodipine 10 Mg Tablet (Amlodipine) Dangelo Marquis MD Date Name Stress Routine EKG HISTORY OF PROCEDURES Procedure Date Procedure Name Provider Procedure Notes S tatus Complex e/m visit ad d on Dangelo Marquis MD completed
[2025-01-03] MEDS: ONDANSETRON INJ 4 MG/2 ML VIAL IV PUSH (22:28)
[2025-01-03] MEDS: HYDROmorphone HCL INJ (*CRX) 1 MG/ML SYR 0.5 MG IV PUSH ×2 (22:29→23:04)
[2025-01-03 22:34] LABS: Basophils Absolute Auto 0.1 K/mm3 (0.0-0.1); Eosinophils Absolute Auto 0.3 K/mm3 (0-0.3); Eosinophils Percent Auto 2.5 % (0-4.4); Hematocrit 43.4 % (42.0-52.0); Hemoglobin 14.2 g/dL (14.0-18.0); Immature Granulocyte Absolute 0.04 K/mm3 (0.00-0.031); Immature Granulocyte Percent A 0.4 % (0-0.5); Lymphocytes Absolute Auto 3.38 K/mm3 (0.9-3.2); Lymphocytes Percent Auto 32.1 % (18.3-44.2); Mean Corpuscular HGB Conc 32.7 g/dl (32-36); Mean Corpuscular Hemoglobin 26.8 pg (26-34); Mean Corpuscular Volume 81.9 fl (80-100); Mean Platelet Volume 9.1 fl (7.4-10.4); Monocytes Absolute Auto 0.7 K/mm3 (0.1-0.6); Platelet Count Result 281 k/mm3 (150-375); Red Cell Distribution Width 13.9 % (11.5-14.5); White Blood Count 10.5 K/mm3 (4.5-10.0)
[2025-01-03 22:44] LABS: Anion Gap 12 mmol/L (4-12); Blood Urea Nitrogen 18 mg/dL (9-20); Calcium 9.4 mg/dL (8.4-10.2); Carbon Dioxide 27 mmol/L (22-30); Chloride 102 mmol/L (98-107); Estimated CRCL calculation 109 ml/min; Estimated Glomerular Filt Rate > 60; Glucose 79 mg/dL (65-110); Potassium 3.6 mmol/L (3.4-5.0); Sodium 141 mmol/L (137-145)
[2025-01-03] MEDS: SODIUM CHLORIDE 0.9% IV 1,000 ML 999 ML IV CONT (23:08)
[2025-01-03] MEDS: KETOROLAC 15 MG/ML VIAL (*BKC) IV PUSH (23:08)
[2025-01-04 00:56] VITALS: BP 166/84; PULSE 88; RESP 15; O2SAT 98
== END 2025-01-04 00:57 | disposition home or self-care (01) ==
PROVIDERS: Student in an Organized Health Care Education/Training Program; Emergency Provider Physician Assistant; PCP Physician Assistant
DX: N20.1 Calculus of ureter (principal); I10 Essential (primary) hypertension; F41.9 Anxiety disorder, unspecified
CPT/HCPCS: 36415; 74176; 80048; 81001; 85025; 96361; 96374; 96375; 96376; 99284; J1171; J1885; J2405; J7030